=== PATIENT | female | born 1990 ===

== ENCOUNTER 2022-06-10 10:04 | Outpatient (CLI) | payer MEDICAID ==
[2022-06-10 14:23] LABS: BASOPHILS % (AUTO) 0.4 %; EOSINOPHILS # (AUTO) 0.2 10^3/uL (0.0-0.7); EOSINOPHILS % (AUTO) 3.3 %; HCT - HEMATOCRIT 36.7 % (37.0-47.0); HGB - HEMOGLOBIN 12.1 g/dL (12.0-16.0); LYMPHOCYTES # (AUTO) 1.9 10^3/uL (1.5-3.5); LYMPHOCYTES % (AUTO) 27.5 %; MEAN CORPUSCULAR HEMOGLOBIN 28.6 pg (27.0-31.0); MEAN CORPUSCULAR VOLUME 86.8 fL (81.0-99.0); MEAN PLATELET VOLUME 10.2 fL (7.9-10.8); MONOCYTES # (AUTO) 0.4 10^3/uL (0.0-1.0); MONOCYTES % (AUTO) 6.1 %; NEUTROPHILS # (AUTO) 4.3 10^3/uL (1.5-6.6); NEUTROPHILS % (AUTO) 62.6 %; PLT - PLATELET COUNT 206 10^3/uL (130-450); RED BLOOD COUNT 4.23 10^6/uL (4.20-5.40); WHITE BLOOD COUNT 6.9 x10^3/uL (4.8-10.8)
[2022-06-10 14:35] LABS: BILIRUBIN,URINE NEGATIVE (NEGATIVE); GLUCOSE, URINE (UA) NEGATIVE (NEGATIVE); KETONES,URINE (UA) NEGATIVE (NEGATIVE); LEUKOCYTE ESTERASE, URINE NEGATIVE (NEGATIVE); NITRITE,URINE NEGATIVE (NEGATIVE); OCCULT BLOOD,URINE NEGATIVE (NEGATIVE); PROTEIN,URINE NEGATIVE (NEGATIVE); UROBILINOGEN,URINE 0.2 (NORMAL) E.U./dL (NORMAL)
[2022-06-10 14:56] LABS: BACTERIA,URINE Rare /HPF (None Seen); CLARITY,URINE CLEAR (CLEAR); RBC,URINE None Seen /HPF (0-5); SQUAMOUS EPITHELIAL CELL,UR FEW Squamous (<= Few); WBC,URINE 0-3 /HPF (0-5)
[2022-06-11 05:10] LABS: HIV SCREEN 4TH GENERATION Non Reactive (Non Reactive); RPR Non Reactive (Non Reactive)
[2022-06-11 07:09] LABS: HBsAG SCREEN Negative (Negative)
[2022-06-11 08:09] LABS: HCV AB Non Reactive (Non Reactive); VARICELLA-ZOSTER AB IGG 968 index (Immune >165)
== END 2022-06-10 10:05 | disposition home or self-care (01) ==
LOC: LAB.S 10:04
PROVIDERS: ATTEND Obstetrics & Gynecology
DX: Z32.01 Encounter for pregnancy test, result positive (principal); Z36.89 Encounter for other specified antenatal screening
CPT/HCPCS: 36415; 81001; 85025; 86592; 86762; 86787; 86803; 86850; 86900; 86901; 87086; 87340; 87389

== ENCOUNTER 2022-06-13 21:03 | Outpatient (CLI) | payer MEDICAID ==
--- NOTE | 2022-06-14 08:20 | Ultrasound Report ---
PROCEDURE: OB First Trimester w/TV INDICATIONS: + PREG TEST OUTSIDE/PRIOR DATING DATA: Last menstrual period (LMP): 04/16/2022. LMP-based estimated date of delivery (PINA): 01/21/2023. First dating scan (date and location): Today's exam. Estimated date of delivery (PINA) from first dating scan: 01/22/2023. The below data below was generated using the ultrasound PINA of 01/22/2023 TECHNIQUE: Real-time scanning was performed of the fetus and maternal pelvic organs, with image documentation. Endovaginal scanning was also performed to better visualize the fetus and maternal ovaries. COMPARISON: None. FINDINGS: Embryo: Single living intrauterine . [place]-rump length measures 1.7 cm, corresponding to 8 weeks 1 day. Heart rate: 171 bpm. Measurement variability in dating: +/- 4 weeks by LMP, +/- 7 days by mean sac diameter (use before 6 weeks gestation if crown-rump length not able to be measured), +/- 5 days by crown-rump length (6-12 weeks gestation). Maternal organs: Ovaries are unremarkable. IMPRESSION: Single living intrauterine at 8 weeks 1 day, IPNA of 01/22/2023. Borderline tachycardia. Attention on follow-up. Reviewed by: Rj Dela Cruz on 06/14/2022 8:19 AM PDT Approved by: Rj Dela Cruz on 06/14/2022 8:19 AM PDT Station ID: [id number]
== END 2022-06-13 21:04 | disposition home or self-care (01) ==
LOC: DI 21:03
PROVIDERS: ATTEND Obstetrics & Gynecology
DX: O36.8310 Maternal care for abnormalities of the fetal heart rate or rhythm, first trimester, not applicable or unspecified (principal); Z3A.08 8 weeks gestation of pregnancy

== ENCOUNTER 2022-06-27 09:28 | Outpatient (CLI) | payer MEDICAID | END 2022-06-27 09:29 | disposition home or self-care (01) | LOC: LAB.S 09:28 | PROVIDERS: ATTEND Obstetrics & Gynecology | DX: O09.91 Supervision of high risk pregnancy, unspecified, first trimester (principal) ==

== ENCOUNTER 2022-06-29 11:00 | Outpatient (CLI) | payer MEDICAID | END 2022-06-29 11:01 | disposition home or self-care (01) | LOC: LAB 11:00 | PROVIDERS: ATTEND Obstetrics & Gynecology | DX: O09.91 Supervision of high risk pregnancy, unspecified, first trimester (principal) ==

== ENCOUNTER 2022-07-13 08:00 | Outpatient (CLI) | payer MEDICAID ==
[2022-07-14 17:48] LABS: NEISSERIA GONORRHOEAE DNA NEGATIVE (NEGATIVE); TRICHOMONAS VAGINALIS DNA NEGATIVE (NEGATIVE)
[2022-07-14 17:50] LABS: CHLAMYDIA TRACHOMATIS DNA NEGATIVE (NEGATIVE)
== END 2022-07-13 23:59 | disposition home or self-care (01) ==
LOC: LAB.WC 08:00
PROVIDERS: ATTEND Obstetrics & Gynecology
DX: Z11.3 Encounter for screening for infections with a predominantly sexual mode of transmission (principal)
CPT/HCPCS: 87491; 87591; 87661

== ENCOUNTER 2022-12-19 13:17 | Outpatient (CLI) | payer MEDICAID ==
--- NOTE | 2022-12-19 18:17 | Ultrasound Report ---
PROCEDURE: OB F/U or Repeat INDICATIONS: POOR GROWTH OUTSIDE/PRIOR DATING DATA: Last menstrual period (LMP): 04/16/2022. LMP-based estimated date of delivery (PINA): 01/21/2023. First dating scan (date and location): 06/13/2022. Estimated date of delivery (PINA) from first dating scan: 01/22/2023. The below data below was generated using the working PINA of 01/21/2023 TECHNIQUE: Real-time scanning was performed of the fetus, with image documentation and biometric measurements. Endovaginal scanning: Not performed. COMPARISON: None. FINDINGS: General: A single living intrauterine gestation is present. Presentation: Cephalic Placenta: Placental position is anterior, without previa. Amniotic fluid index: 9.9 cm, 14 percentile for gestational age. heart rate: 121 beats per minute. Maternal cervical canal: 4.1 cm long; normal length is 2.5 cm or more. biometrics: Biparietal diameter: 9.0 cm, 36 week 2 day Head circumference: 32.2 cm, 36 week 3 day Abdominal circumference: 31.0 cm, 35 week 0 day Femur length: 6.9 cm, 35 week 2 day Estimated gestational age from initial scan: 35 week 2 day Composite gestational age from present scan: 35 week 5 day Estimated weight and percentile: 2653 g, 49th percentile Measurement variability in biometric dating: +/- 10 days from 12-20 weeks gestation, +/- 2 weeks from 20-30 weeks gestation, +/- 3 weeks at 30 weeks gestation or more. Other: Not applicable. IMPRESSION: Single live intrauterine consistent with a 35 week 5 day gestation by current ultrasound Reviewed by: Max Peguero MD on 12/19/2022 5:16 PM GENARO Approved by: Max Peguero MD on 12/19/2022 5:16 PM AKHANS Station ID: [id number]
== END 2022-12-19 13:18 | disposition home or self-care (01) ==
LOC: DI 13:17
PROVIDERS: ATTEND Obstetrics & Gynecology
DX: O36.5939 Maternal care for other known or suspected poor fetal growth, third trimester, other fetus (principal); Z3A.35 35 weeks gestation of pregnancy

== ENCOUNTER 2023-01-02 08:00 | Outpatient (CLI) | payer MEDICAID | END 2023-01-02 23:59 | disposition home or self-care (01) | LOC: LAB.WC 08:00 | PROVIDERS: ATTEND Obstetrics & Gynecology | DX: Z36.85 Encounter for antenatal screening for Streptococcus B (principal) | CPT/HCPCS: 87797 ==

== ENCOUNTER 2023-01-27 07:34 | Inpatient (IN) | payer MEDICAID ==
[2023-01-27] MEDS ORDERED: miSOPROStoL 200 MCG TABLET BC PRN (08:26)
[2023-01-27] MEDS ORDERED: lidocaine 1% 20 ML MDV ID PRN (08:26)
[2023-01-27] MEDS ORDERED: SODIUM CHLORIDE FLUSH 0.9% 10 ML SYRINGE IVP PRN (08:26)
[2023-01-27] MEDS ORDERED: OXYTOCIN 10 UNIT/ML VIAL IM PRN (08:26)
[2023-01-27] MEDS ORDERED: OXYTOCIN/SODIUM CHLORIDE 500 ML IV PRN (08:26)
[2023-01-27] MEDS ORDERED: TRANEXAMIC ACID IN NACL 1,000 MG/100 ML BAG IV PRN (08:26)
[2023-01-27] MEDS ORDERED: CARBOPROST TROMETHAMINE 250 MCG/ML AMP IM PRN (08:26)
[2023-01-27] MEDS ORDERED: METHYLERGONOVINE 0.2 MG/ML VIAL IM PRN (08:26)
[2023-01-27 08:42] LABS: BASOPHILS % (AUTO) 0.4 %; EOSINOPHILS # (AUTO) 0.1 10^3/uL (0.0-0.7); EOSINOPHILS % (AUTO) 1.7 %; HCT - HEMATOCRIT 36.9 % (37.0-47.0); HGB - HEMOGLOBIN 12.2 g/dL (12.0-16.0); LYMPHOCYTES # (AUTO) 1.8 10^3/uL (1.5-3.5); LYMPHOCYTES % (AUTO) 22.2 %; MEAN CORPUSCULAR HEMOGLOBIN 29.3 pg (27.0-31.0); MEAN CORPUSCULAR HGB CONC 33.1 g/dL (32.0-36.0); MEAN CORPUSCULAR VOLUME 88.7 fL (81.0-99.0); MEAN PLATELET VOLUME 10.7 fL (7.9-10.8); MONOCYTES # (AUTO) 0.7 10^3/uL (0.0-1.0); MONOCYTES % (AUTO) 8.7 %; NEUTROPHILS # (AUTO) 5.4 10^3/uL (1.5-6.6); NEUTROPHILS % (AUTO) 65.1 %; PLT - PLATELET COUNT 164 10^3/uL (130-450); RED BLOOD COUNT 4.16 10^6/uL (4.20-5.40); RED CELL DISTRIBUTION WIDTH 13.3 % (12.0-15.0); WHITE BLOOD COUNT 8.3 x10^3/uL (4.8-10.8)
[2023-01-27 08:45] LABS: RUPTURE OF MEMBRANES PLUS POSITIVE (NEGATIVE)
[2023-01-27] MEDS ORDERED: SODIUM CHLORIDE FLUSH 0.9% 10 ML SYRINGE IVP SCH (09:00)
[2023-01-27] MEDS: miSOPROStoL 100 MCG TABLET VG SCH ×3 (10:25→21:15)
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
[2023-01-27] MEDS: LACTATED RINGERS 1,000 ML IV SCH ×2 (13:50→18:09)
[2023-01-27] MEDS ORDERED: ACETAMINOPHEN 500 MG TABLET PO PRN (16:37)
--- NOTE | 2023-01-27 17:21 | PROVIDER PROGRESS NOTE ---
Labor Progress Note - Uterine Monitoring Uterine Monitoring Mode: positive: External toco Contraction Frequency (min/apart): 3 to 5 Contraction Intensity: positive: Moderate to strong Uterine Resting Tone: positive: Soft - Monitoring Monitor Mode: positive: External ultrasound Heart Rate Baseline: 130 Heart Rate Variability: positive: Moderate (6-25 bmp) Accelerations: positive: Present, 15x15 Decelerations: positive: None Strip Review: positive: Category I - Vaginal Exam Dilation (in cm): 1 Effacement (%): 70 Station: -3 - Labor Progress Note Labor Progress Note/Additional Text: Patient feeling significant pain with contraction. Currently using nitrous. Received a dose of Tylenol. Offered fentanyl, but discussed that this early on being this bad will likely need more intense pain later and should be open- minded about epidural. Did have occasional late deceleration previously although baby is very active. Hard to get a baseline at times.
[2023-01-27] MEDS: fentaNYL 100 MCG/2 ML VIAL IVP PRN (21:14)
[2023-01-28] MEDS: miSOPROStoL 100 MCG TABLET VG SCH (01:13)
[2023-01-28] MEDS: fentaNYL 100 MCG/2 ML VIAL IVP PRN ×2 (01:15→05:15)
--- NOTE | 2023-01-28 04:16 | PROVIDER PROGRESS NOTE ---
Labor Progress Note - Uterine Monitoring Uterine Monitoring Mode: positive: External toco Contraction Frequency (min/apart): 3-7 Contraction Intensity: positive: Moderate Uterine Resting Tone: positive: Soft - Monitoring Monitor Mode: positive: External ultrasound Heart Rate Baseline: 135 Heart Rate Variability: positive: Moderate (6-25 bmp) Accelerations: positive: Present, 15x15 Decelerations: positive: Late, Intermittent (<50% x20 min) - Vaginal Exam Dilation (in cm): 1.5 Effacement (%): 70 Station: -3 - Labor Progress Note Labor Progress Note/Additional Text: Received last dose of misoprostol at 0113. Subsequently had occasional late deceleration followed by a prolonged deceleration that returned to baseline. Intermittent category 2 tracing, although overall reassuring with long periods of category 1. Will reevaluate prior to next dose.
[2023-01-28] MEDS: LACTATED RINGERS 1,000 ML IV SCH ×2 (05:30→09:46)
--- NOTE | 2023-01-28 06:47 | PROVIDER PROGRESS NOTE ---
Labor Progress Note - Uterine Monitoring Uterine Monitoring Mode: positive: External toco Contraction Frequency (min/apart): 8-10 Contraction Intensity: positive: Moderate Uterine Resting Tone: positive: Soft - Monitoring Monitor Mode: positive: External ultrasound Heart Rate Baseline: 130 Heart Rate Variability: positive: Moderate (6-25 bmp) Accelerations: positive: Present, 15x15 Decelerations: positive: Late, Intermittent (<50% x20 min) Strip Review: positive: Category II - Vaginal Exam Dilation (in cm): 5 Effacement (%): 90 Station: -2 Cervical Position: Anterior - Labor Progress Note Labor Progress Note/Additional Text: Overally reassuring FHT, but occasional late deceleration, but variability remains good. Made progress to 5cm and nearly completely effaced. Patient has received 3 doses of fentanyl and desires an epidural. Will perform AROM after epidural.
[2023-01-28] MEDS ORDERED: OXYTOCIN/SODIUM CHLORIDE 500 ML IV SCH (08:00)
[2023-01-28] MEDS ORDERED: ROPIVACAINE 0.2% 200 MG/100 ML BAG EP ONE (08:33)
--- NOTE | 2023-01-28 08:51 | ANESTHESIA ---
Pre-Anesthesia VS, & Labs - Diagnosis active labor - Procedure vaginal delivery Vital Signs: Temp Pulse Resp BP Pulse Ox O2 Flow Rate 36.8 C 01/27/23 08:39 Height: 5 ft 7 in Weight (kg): 90.718 kg Body Mass Index: 31.3 BMI Classification: Obese - NPO Last Fluid Intake: clear liquids - Is Patient ?: Yes - Lab Results Current Lab Results: Laboratory Tests 01/27/23 08:10: WBC 8.3, RBC 4.16 L, Hgb 12.2, Hct 36.9 L, MCV 88.7, MCH 29.3, MCHC 33.1, RDW 13.3, Plt Count 164, MPV 10.7, Neut # (Auto) 5.4, Lymph # (Auto) 1.8, [place] # (Auto) 0.7, Eos # (Auto) 0.1, Baso # (Auto) 0.0, Absolute Nucleated RBC 0.00, Nucleated RBC % 0.0 01/27/23 08:10: Blood Type A POSITIVE, Antibody Screen NEGATIVE Lab results reviewed: Yes Fish Bones: 01/27/23 08:10 Home Medications and Allergies Active Medications Acetaminophen (Acetaminophen 500 Mg Tablet) 1,000 mg PO Q4HR PRN PRN Reason: Pain or Fever > 38C (100.4F) Last Admin: 01/27/23 16:46 Dose: 1,000 mg Carboprost Tromethamine (Carboprost Tromethamine 250 Mcg/Ml Amp) 250 mcg IM Q15M PRN PRN Reason: Step 4: Hemorrhage protocol Stop: 02/01/23 08:27 Fentanyl (Fentanyl 100 Mcg/2 Ml Vial) 100 mcg IVP Q2HR PRN PRN Reason: Severe Pain (Level 7-10) Last Admin: 01/28/23 05:15 Dose: 100 mcg Oxytocin/Sodium Chloride (Pitocin/Sodium Chloride) 500 mls @ 999 mls/hr IV PRN PRN; Protocol PRN Reason: POST- HEMORR PREVENTION Stop: 02/01/23 08:27 Tranexamic Acid (Tranexamic 1,000 Mg/100ml-Nacl) 1,000 mg in 100 mls @ 600 mls/hr IV .ONCE PRN PRN Reason: EBL >1200mL and within 3hr Stop: 02/01/23 08:27 Lactated Ringer's (Lr) 1,000 mls @ 100 mls/hr IV .Q10H [facility] Last Admin: 01/28/23 05:30 Dose: 100 mls/hr Oxytocin/Sodium Chloride (Pitocin/Sodium Chloride) 500 mls @ 1 mls/hr IV TITR [facility]; Protocol Last Admin: 01/28/23 07:54 Dose: 2 milliunit/min, 2 mls/hr Lidocaine HCl (Lidocaine 1% 20 Ml Mdv) 20 ml ID .ONCE PRN PRN Reason: PERINEAL REPAIR Stop: 02/01/23 08:27 Methylergonovine Maleate (Methylergonovine 0.2 Mg/Ml Vial) 0.2 mg IM .ONCE PRN PRN Reason: Step 2: Hemorrhage protocol Stop: 02/01/23 08:27 Misoprostol (Misoprostol 200 Mcg Tablet) 800 mcg BC .ONCE PRN PRN Reason: Step 3: Hemorrhage protocol Stop: 02/01/23 08:27 Misoprostol (Misoprostol 100 Mcg Tablet) 25 mcg VG Q4H [facility] Last Admin: 01/28/23 01:13 Dose: 25 mcg Oxytocin (Oxytocin 10 Unit/Ml Vial) 10 unit IM .ONCE PRN PRN Reason: Step one: If no IV access Stop: 02/01/23 08:27 Sodium Chloride (Sodium Chloride Flush 0.9% 10 Ml Syringe) 10 ml IVP 0100,0900,1700 [facility] Last Admin: 01/27/23 08:00 Dose: 10 ml Sodium Chloride (Sodium Chloride Flush 0.9% 10 Ml Syringe) 10 ml IVP PRN PRN PRN Reason: NEEDED PER PROVIDER ORDERS Allergies/Adverse Reactions: Allergies Allergy/AdvReac Type Severity Reaction Status Date / Time No Known Drug Allergies Allergy Verified 01/27/23 07:48 Anes History & Medical History - Anesthetic History Anesthesia Complications: reports: No previous complications - Medical History Cardiovascular: reports: Other (possible POTS, ECHO negative) Pulmonary: reports: None Gastrointestinal: reports: None Urinary: reports: None Neuro: reports: None Musculoskeletal: reports: Other (omkar danlos, 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) Endocrine/Autoimmune: reports: None Blood Disorders: reports: None Skin: reports: None Smoking Status: Former smoker Psychosocial: reports: No issues indicated History of Cancer?: No - Surgical History Gynecologic: reports: Breast implants - Obstetrical History : 5 Parity: 0 Events: reports: None Complications: reports: None Exam General: Alert, Oriented x3, Cooperative, No acute distress Dental: WNL Mouth Openin Fingerbreadth Neck Mobility: Normal Mallampati classification: II Thyromental Distance: 4-6 cm Mental/Cognitive Status: Alert/Oriented X3, Normal for patient Plan Anesthesia Type: Epidural Consent for Procedure(s) Verified and Reviewed: Yes Code Status: Attempt Resuscitation ASA classification: 2-Mild systemic disease Is this case an emergency?: No
[2023-01-28] MEDS ORDERED: ePHEDrine 50 MG/ML VIAL IVP PRN (08:53)
[2023-01-28] MEDS ORDERED: NALOXONE 0.4 MG/ML VIAL IVP PRN ×2 (08:53→12:55)
[2023-01-28] MEDS ORDERED: ROPIVACAINE 0.2% 200 MG/100 ML BAG EP PRN (08:53)
--- NOTE | 2023-01-28 09:47 | PROVIDER PROGRESS NOTE ---
Labor Progress Note - Uterine Monitoring Uterine Monitoring Mode: positive: External toco Contraction Frequency (min/apart): 3-7 Contraction Intensity: positive: Strong Uterine Resting Tone: positive: Soft - Monitoring Monitor Mode: positive: External ultrasound Heart Rate Baseline: 150 Heart Rate Variability: positive: Moderate (6-25 bmp) Accelerations: positive: Present, 15x15 Decelerations: positive: Late, Intermittent (<50% x20 min) - Vaginal Exam Dilation (in cm): 6 Effacement (%): 90 Station: -2 Cervical Position: Anterior - Labor Progress Note Labor Progress Note/Additional Text: Patient had a run of recurrent late decelerations. Got an epidural for pain relief. Patient was checked and found to be 6 cm, but had still high in the pelvis. Plan to assess fetus after recovery and restart oxytocin when able. Discussed possibility of section if fetus does not tolerate.
--- NOTE | 2023-01-28 10:47 | PROVIDER PROGRESS NOTE ---
Labor Progress Note - Uterine Monitoring Uterine Monitoring Mode: positive: External toco Contraction Frequency (min/apart): 2-7 Contraction Intensity: positive: Moderate to strong - Monitoring Monitor Mode: positive: External ultrasound Heart Rate Baseline: 150 Heart Rate Variability: positive: Moderate (6-25 bmp) Accelerations: positive: Present, 15x15 Decelerations: positive: Late, Recurrent (>50% x20 min) - Vaginal Exam Dilation (in cm): 6 Effacement (%): 90 Station: -2, Ballotable - Labor Progress Note Labor Progress Note/Additional Text: Patient has progressed to recurrent late decelerations although with good variability and accelerations. While this does not indicate significant concern for compromise, we are unable to start oxytocin, patient is unchanged, and head is not in a position for membrane rupture. Patient was previously counseled and consents in the event of urgent section, and again this was discussed after heart tracing worsened. section was recommended. Risks, benefits and alternatives were discussed including but not limited to infection, bleeding that may require blood products or hysterectomy for life saving measures, injury to surrounding organs including but not limited to bowel, bladder, ureters, tubes and ovaries and/or the baby. Should injury occur it could require longer/additional surgery to repair. The patient stated understanding and desired to proceed. All questions were answered posed by patient.
[2023-01-28] MEDS ORDERED: LIDOCAINE 2%-EPI 1:100000 20 ML MDV ONE (11:00)
[2023-01-28] MEDS ORDERED: ceFAZolin (2G) 2 GM in SODIUM CHLORIDE 0.9% MINIBAG 100 ML IV SCH (11:00)
[2023-01-28] MEDS ORDERED: AZITHROMYCIN INJ 500 MG in SODIUM CHLORIDE 0.9% 250 ML IV ONE (11:00)
[2023-01-28] MEDS ORDERED: LACTATED RINGERS 1,000 ML IV SCH ×3 (11:00→13:00)
[2023-01-28] MEDS ORDERED: MIDAZOLAM 2 MG/2 ML VIAL ONE (11:41)
[2023-01-28] MEDS ORDERED: PROPOFOL 200 MG/20 ML VIAL IVP ONE ×2 (11:52→12:51)
[2023-01-28] MEDS ORDERED: ONDANSETRON ODT 4 MG TABLET TL PRN (11:55)
[2023-01-28] MEDS ORDERED: OXYTOCIN/SODIUM CHLORIDE 500 ML IV PRN (11:55)
[2023-01-28] MEDS ORDERED: SODIUM CHLORIDE FLUSH 0.9% 10 ML SYRINGE IVP PRN (11:55)
[2023-01-28] MEDS ORDERED: SIMETHICONE CHEW 80 MG TABLET PO PRN (11:55)
[2023-01-28] MEDS ORDERED: KETOROLAC 30 MG/ML VIAL ONE (11:59)
--- NOTE | 2023-01-28 12:01 | OPERATIVE REPORT ---
Operative Report - General Admit Date: 01/27/23 Procedure Date: 01/28/23 Planned Procedure: Primary low-transverse section Pre-Op Diagnosis: intolerance of labor Procedure Performed: Primary low-transverse section Post Op Diagnosis: intolerance to labor, status post primary low- transverse - Procedure Note Primary Surgeon: Maikol Wellington MD Secondary Surgeon: NOY Bond Anesthesia Provider: Trisha Boland CRNA Anesthesia Technique: Epidural Pathology: None Estimated Blood Loss (mL): 600 Indications: intolerance of labor with repetitive late decelerations remote from delivery Findings: Healthy live vargas female with Apgars of 8/9. weight is pending at this time. Normal-appearing tubes and ovaries. 2 small, approximately 1.5 cm fibroids, 1 anterior and 1 posterior. Complications: None - Other Other Information/Narrative: Patient was admitted at 40 weeks 6 days gestation for induction of labor at term. She received 4 doses of misoprostol then was briefly started on oxytocin. Despite the repetitive late decelerations, likely due to the infrequency of contractions, tolerated this well and had good variability and accelerations between contractions. She progressed to 6 cm dilation, but had repetitive late decelerations and could not restart the oxytocin. Despite position changes, fluid bolus, stopping oxytocin, decelerations did not stop, so after several discussions, agreed to proceed with section. section was recommended. Risks, benefits and alternatives were discussed including but not limited to infection, bleeding that may require blood products or hysterectomy for life saving measures, injury to surrounding organs including but not limited to bowel, bladder, ureters, tubes and ovaries and/or the baby. Should injury occur it could require longer/additional surgery to repair. The patient stated understanding and desired to proceed. All questions were answered posed by patient. Prior to being taken to the OR, 2 g of cefazolin and 500 mg of azithromycin were administered. The patient was taken to the operating room where regional anesthesia was found to be adequate. She was then prepared and draped in the usual sterile fashion in the dorsal supine position with a leftward tilt displacing the uterus. Ng was draining to gravity. SCDs were on bilateral lower extremities. A pfannenstiel skin incision was then made with the scalpel and carried through to the underlying layer of fascia. The fascia was incised in the midline and the incision extended laterally with the Cody scissors. The superior aspect of the facial incision was then grasped with the Izzy clamps, elevated and the underlying rectus muscles dissected off sharply. Attention was then turned to the inferior aspect of this incision which in a similar fashion was grasped, elevated with the Izzy clamps and the rectus muscle dissected off sharply. The rectus muscles were in the midline. The peritoneum identified, grasped with the pick-ups and entered sharply with the Metzenbaum scissors. The peritoneal incision was then extended superiorly and inferiorly with good visualization of the bladder. The bladder blade was inserted. The vesicouterine peritoneum was identified, grasped with the pick-ups, and entered sharply with Metzenbaum scissors. This incision was then extended laterally and the bladder flap created digitally. The bladder blade was reinserted. The lower uterine segment was identified and incised in a transverse fashion with the scalpel. The uterine incision was then extended bluntly laterally. Artificial rupture of membranes demonstrated meconium stained fluid. The bladder blade was removed. The fetus was in a cephalic presentation. The infants head delivered atraumatically. The anterior shoulders were delivered followed by the posterior shoulders then the remainder of the body. The infants mouth and nose were bulb suctioned. The umbilical cord was clamped times two and cut. The was handed to the pediatric team. The placenta was removed with gentle traction. Oxytocin was added to the IV fluid and was allowed to run freely. The uterus was exteriorized and cleared of all clots and debris. The uterine incision was inspected and found to be without any extensions and was repaired with 0 Vicryl in a running, locked fashion. A second imbricating layer was performed. Upon inspection, the repaired hysterotomy was found to be hemostatic. The uterus was firm and returned to the abdomen. The gutters were cleared of all clots and debris. The muscle layer was examined and found to be hemostatic. The fascia was reapproximated with 0 Vicryl in a running fashion. The skin was closed in a subcuticular fashion with 4-0 Monocryl. The patient tolerated the procedure well. Sponge, lap and needle counts were correct times three. The patient was taken to the recovery room in stable condition. I appreciate the assistance of NOY Bond during this procedure, and the assistance in retraction, visualization, dissection, and overall assistance during the case were instrumental to the patient's wellbeing. APGARs: 8/9 weight: Pending
[2023-01-28] MEDS ORDERED: SODIUM CHLORIDE 0.9% 10 ML VIAL IVP ONE (12:03)
[2023-01-28] MEDS ORDERED: ROPIVACAINE 0.2% PF 10 ML VIAL ONE (12:03)
[2023-01-28] MEDS ORDERED: MORPHINE PF 5 MG/10 ML VIAL ONE (12:11)
[2023-01-28] MEDS ORDERED: LACTATED RINGERS 300 ML IV ONE (12:29)
[2023-01-28] MEDS ORDERED: MORPHINE 2 MG/ML CARPUJECT IVP PRN (12:55)
[2023-01-28] MEDS ORDERED: ONDANSETRON 4 MG/2 ML VIAL IVP PRN (12:55)
[2023-01-28] MEDS ORDERED: ATROPINE ABBOJECT 1 MG/10 ML SYRINGE IVP PRN (12:55)
[2023-01-28] MEDS ORDERED: fentaNYL 100 MCG/2 ML VIAL IVP PRN (12:55)
[2023-01-28] MEDS ORDERED: HYDROmorphone 0.5 MG/0.5 ML SYRINGE IVP PRN (12:55)
[2023-01-28] MEDS: diphenhydrAMINE 25 MG CAPSULE PO PRN ×2 (15:27→23:37)
[2023-01-28] MEDS: ACETAMINOPHEN 500 MG TABLET PO SCH ×2 (15:27→23:36)
[2023-01-28] MEDS ORDERED: SODIUM CHLORIDE FLUSH 0.9% 10 ML SYRINGE IVP SCH (17:00)
--- NOTE | 2023-01-28 17:36 | ANESTHESIA POST OP EVALUATION ---
Anesthesia Post Eval - Post Anesthesia Eval Vitals: Last Vital Signs Temp 36.8 C 01/28/23 13:00 Pulse 81 01/28/23 13:00 Resp 14 01/28/23 13:00 BP 115/67 01/28/23 13:00 Pulse Ox 100 01/28/23 13:00 O2 Flow Rate CV Function Including HR & BP: Stable Pain Control: Satisfactory Nausea & Vomiting: Negative Mental Status: Baseline Respiratory Status: Airway Patent Hydration Status: Satisfactory Anesthesia Complications: None
[2023-01-28] MEDS: KETOROLAC 30 MG/ML VIAL IVP SCH ×2 (18:02→23:41)
[2023-01-29 05:26] LABS: BASOPHILS % (AUTO) 0.3 %; EOSINOPHILS # (AUTO) 0.2 10^3/uL (0.0-0.7); EOSINOPHILS % (AUTO) 1.7 %; HCT - HEMATOCRIT 29.6 % (37.0-47.0); HGB - HEMOGLOBIN 9.7 g/dL (12.0-16.0); LYMPHOCYTES # (AUTO) 1.6 10^3/uL (1.5-3.5); MEAN CORPUSCULAR HEMOGLOBIN 29.2 pg (27.0-31.0); MEAN CORPUSCULAR HGB CONC 32.8 g/dL (32.0-36.0); MEAN CORPUSCULAR VOLUME 89.2 fL (81.0-99.0); MEAN PLATELET VOLUME 10.4 fL (7.9-10.8); MONOCYTES # (AUTO) 0.8 10^3/uL (0.0-1.0); MONOCYTES % (AUTO) 9.7 %; NEUTROPHILS # (AUTO) 5.9 10^3/uL (1.5-6.6); NEUTROPHILS % (AUTO) 68.6 %; PLT - PLATELET COUNT 120 10^3/uL (130-450); RED BLOOD COUNT 3.32 10^6/uL (4.20-5.40); RED CELL DISTRIBUTION WIDTH 13.4 % (12.0-15.0); WHITE BLOOD COUNT 8.6 x10^3/uL (4.8-10.8)
[2023-01-29] MEDS: KETOROLAC 30 MG/ML VIAL IVP SCH (05:58)
[2023-01-29] MEDS: oxyCODONE 5 MG TABLET PO PRN ×4 (08:37→23:34)
[2023-01-29] MEDS: DOCUSATE SODIUM 100 MG CAPSULE PO SCH ×2 (08:38→21:57)
[2023-01-29] MEDS: ACETAMINOPHEN 500 MG TABLET PO SCH ×3 (08:42→19:35)
--- NOTE | 2023-01-29 09:15 | PROVIDER PROGRESS NOTE ---
Subjective - Subjective Subjective: Subjective Patient reports she is doing well. Lochia appropriate. Denies heavy bleeding. Ambulating. Pelvic and abdominal pain well-controlled. Tolerating oral intake. Diet: Regular. Voiding without difficulty. Passing flatus. Denies BM. Patient is bonding with baby in room Breast feeding going well. Denies feeling lightheaded, dizzy or excessively fatigued. Objective General: Alert, oriented, no apparent distress. Cardiovascular: Regular rate. Regular rhythm. Lungs: No increased work of breathing. Abdomen: Uterus firm. Below umbilicus. No guarding or rebound. Extremities: No pain on palpation. No cords palpated. Distal pulses intact. Incision: Clean, dry, and intact. Assessment and Plan day 1. -Routine care -Anticipate discharge in 1 to 2 days Objective - Vital Signs/Intake & Output Vital Signs: Vital Signs x48h Temp Pulse Resp BP 01/29/23 03:37 98.1 F 86 16 119/62 Intake & Output: Intake & Output 01/26/23 01/27/23 01/28/23 01/29/23 23:59 23:59 23:59 23:59 Intake Total 1349.65 426.667 640 Output Total 875 675 Balance 1349.65 -448.333 -35 - Lab Results Fish Bones: 01/29/23 05:02 Other Labs: Lab Results x24hrs 01/29/23 Range/Units 05:02 WBC 8.6 (4.8-10.8) x10^3/uL RBC 3.32 L (4.20-5.40) 10^6/uL Hgb 9.7 L (12.0-16.0) g/dL Hct 29.6 L (37.0-47.0) % MCV 89.2 (81.0-99.0) fL MCH 29.2 (27.0-31.0) pg MCHC 32.8 (32.0-36.0) g/dL RDW 13.4 (12.0-15.0) % Plt Count 120 L (130-450) 10^3/uL MPV 10.4 (7.9-10.8) fL Neut # (Auto) 5.9 (1.5-6.6) 10^3/uL Lymph # (Auto) 1.6 (1.5-3.5) 10^3/uL [place] # (Auto) 0.8 (0.0-1.0) 10^3/uL Eos # (Auto) 0.2 (0.0-0.7) 10^3/uL Baso # (Auto) 0.0 (0.0-0.1) 10^3/uL Absolute Nucleated RBC 0.00 x10^3/uL Nucleated RBC % 0.0 /100WBC
[2023-01-29] MEDS: IBUPROFEN 600 MG TABLET PO SCH ×2 (15:10→21:59)
[2023-01-30] MEDS: oxyCODONE 5 MG TABLET PO PRN ×5 (03:33→22:53)
[2023-01-30] MEDS: ACETAMINOPHEN 500 MG TABLET PO SCH ×3 (03:34→22:52)
[2023-01-30] MEDS: IBUPROFEN 600 MG TABLET PO SCH ×3 (03:44→20:53)
[2023-01-30] MEDS: DOCUSATE SODIUM 100 MG CAPSULE PO SCH ×2 (07:19→20:53)
--- NOTE | 2023-01-30 13:19 | PROVIDER PROGRESS NOTE ---
Subjective - Prog Note Date Prog Note Date: 01/30/23 Prog Note Time: 13:17 - Subjective Pt reports feeling: Improved Subjective: Pt well, lochia appropriate, + amb, + void, + gus PO, + flatus Feeding going well -- breast though baby has dropped 9% weight and so we are actively assisting with support Bonding with baby Denies: F/C/N/V/CP/SOB Denies: dizziness, weakness, lightheadedness, difficulty with ambulation, palpitations Denies: LOVE / visual changes Objective - Vital Signs/Intake & Output Reviewed Vital Signs: Yes Vital Signs: Vital Signs x48h Temp Pulse Resp BP Pulse Ox 01/30/23 07:22 97.9 F 77 16 132/88 H 100 Intake & Output: Intake & Output 01/27/23 01/28/23 01/29/23 01/30/23 23:59 23:59 23:59 23:59 Intake Total 1349.65 013.854 5914 Output Total 875 1126 Balance 1349.65 -448.333 104 - Objective General Appearance: positive: No acute distress Eyes Bilateral: positive: Normal inspection ENT: positive: ENT inspection nml Neck: positive: Nml inspection Respiratory: positive: Chest non-tender, No respiratory distress, Breath sounds nml Cardiovascular: positive: Regular rate & rhythm, No murmur, No gallop Abdomen: positive: Non-tender, Nml bowel sounds, No distention, Other (UTERUS BELOW U inc cdi, STERISTRIPS & SUTURES) Back: positive: Nml inspection Skin: positive: Color nml, No rash, Warm, Dry Extremities: positive: Non-tender, Nml appearance Neurologic/Psychiatric: positive: Oriented x3 - Lab Results Fish Bones: 01/29/23 05:02 Assessment/Plan - Problem List (1) state Impression: DOING WELL continue to advance anticipate D/C home tomorrow with routine precautions and ins tructions (2) Postoperative state Impression: continue to advance anticipate D/C home tomorrow once all milestones are met (3) Anemia Impression: start PO iron asymptomatic stable Qualifiers: Anemia type: other cause Other causes of anemia: acute posthemorrhagic Qualified Code(s): D62 - Acute posthemorrhagic anemia
[2023-01-30] MEDS: FERROUS SULFATE 325 MG TABLET PO SCH (16:50)
[2023-01-30] MEDS ORDERED: diphenhydrAMINE 25 MG CAPSULE PO PRN (21:00)
[2023-01-31] MEDS: IBUPROFEN 600 MG TABLET PO SCH ×2 (04:48→11:24)
[2023-01-31] MEDS: oxyCODONE 5 MG TABLET PO PRN ×3 (04:48→13:51)
[2023-01-31] MEDS: DOCUSATE SODIUM 100 MG CAPSULE PO SCH (08:21)
[2023-01-31] MEDS: ACETAMINOPHEN 500 MG TABLET PO SCH ×2 (08:21→15:57)
[2023-01-31 09:53] VITALS: BP 125/71; O2SAT 98
[2023-01-31] MEDS: FERROUS SULFATE 325 MG TABLET PO SCH (11:24)
--- NOTE | 2023-01-31 12:42 | DISCHARGE SUMMARY ---
"Discharge Summary Admit Date: 01/27/23 Discharge Date: 01/31/23 Discharging Provider: kathia Primary Care Provider: henri Code Status: Attempt Resuscitation Condition at Discharge: Good Discharge Disposition: 01 Home, Self Care - DIAGNOSES Admission Diagnoses: IUP at term ROM Discharge Diagnoses with Status of Each Condition: s/p 1LTCS 2'2 NRFHT labor progressed to 6cm, then NRFHT doing well. - HPI History of Present Illness: Pt well, lochia appropriate, + amb, + void, + gus PO, + flatus Feeding going well -- breast Bonding with baby reports ready to go home and has safe home to go home to her support system is FOB, and we discussed strategies. - CONSULTS | PROCEDURES Procedures: evaluation labor management labor augmentation epidural 1LCTS post op & post care and support - HOSPITAL COURSE Hospital Course: Patient was admitted at 40 weeks 6 days gestation for induction of labor at term. She received 4 doses of misoprostol then was briefly started on oxytocin. Despite the repetitive late decelerations, likely due to the infrequency of contractions, tolerated this well and had good variability and accelerations between contractions. She progressed to 6 cm dilation, but had repetitive late decelerations and could not restart the oxytocin. Despite position changes, fluid bolus, stopping oxytocin, decelerations did not stop, so after several discussions, agreed to proceed with section. Prior to being taken to the OR, 2 g of cefazolin and 500 mg of azithromycin were administered. The patient was taken to the operating room where regional anesthesia was found to be adequate. She was then prepared and draped in the usual sterile fashion in the dorsal supine position with a leftward tilt displacing the uterus. Ng was draining to gravity. SCDs were on bilateral lower extremities. A pfannenstiel skin incision was then made with the scalpel and carried through to the underlying layer of fascia. The fascia was incised in the midline and the incision extended laterally with the Cody scissors. The superior aspect of the facial incision was then grasped with the Izzy clamps, elevated and the underlying rectus muscles dissected off sharply. Attention was then turned to the inferior aspect of this incision which in a similar fashion was grasped, elevated with the Izzy clamps and the rectus muscle dissected off sharply. The rectus muscles were in the midline. The peritoneum identified, grasped with the pick-ups and entered sharply with the Metzenbaum scissors. The peritoneal incision was then extended superiorly and inferiorly with good visualization of the bladder. The bladder blade was inserted. The vesicouterine peritoneum was identified, grasped with the pick-ups, and entered sharply with Metzenbaum scissors. This incision was then extended laterally and the bladder flap created digitally. The bladder blade was reinserted. The lower uterine segment was identified and incised in a transverse fashion with the scalpel. The uterine incision was then extended bluntly laterally. Artificial rupture of membranes demonstrated meconium stained fluid. The bladder blade was removed. The fetus was in a cephalic presentation. The infants head delivered atraumatically. The anterior shoulders were delivered followed by the posterior shoulders then the remainder of the body. The infants mouth and nose were bulb suctioned. The umbilical cord was clamped times two and cut. The infant was handed to the pediatric team. The placenta was removed with gentle traction. Oxytocin was added to the IV fluid and was allowed to run freely. The uterus was exteriorized and cleared of all clots and debris. The uterine incision was inspected and found to be without any extensions and was repaired with 0 Vicryl in a running, locked fashion. A second imbricating layer was performed. Upon inspection, the repaired hysterotomy was found to be hemostatic. The uterus was firm and returned to the abdomen. The gutters were cleared of all clots and debris. The muscle layer was examined and found to be hemostatic. The fascia was reapproximated with 0 Vicryl in a running fashion. The skin was closed in a subcuticular fashion with 4-0 Monocryl. The patient tolerated the procedure well. Sponge, lap and needle counts were correct times three. The patient was taken to the recovery room in stable condition. post operatively she did well all milestones were met and she was D/Cd home with infant on POD#3 - ALLERGIES Allergies/Adverse Reactions: Allergies Allergy/AdvReac Type Severity Reaction Status Date / Time No Known Drug Allergies Allergy Verified 01/28/23 12:12 - MEDICATIONS Home Medications: Ambulatory Orders Medication Instructions Recorded Confirmed Acetaminophen [Tylenol] 1,000 mg PO Q8H #40 tab 01/31/23 Ferrous Sulfate [Feosol] 325 mg PO BIDWM #60 tab 01/31/23 Ibuprofen [Motrin] 600 mg PO Q6H #60 tab 01/31/23 - PHYSICAL EXAM AT DISCHARGE General Appearance: positive: No acute distress Eyes Bilateral: positive: Normal inspection, PERRL ENT: positive: ENT inspection nml Neck: positive: Nml inspection Respiratory: positive: Chest non-tender, No respiratory distress, Breath sounds nml Cardiovascular: positive: Regular rate & rhythm, No murmur, No gallop Abdomen: positive: Non-tender, No distention, Other (sheldon 1 below U) Back: positive: Nml inspection Skin: positive: Color nml, No rash, Warm, Dry Extremities: positive: Pedal edema (1+) Neurologic/Psychiatric: positive: Oriented x3 - LABS Result Diagrams: 01/29/23 05:02 - QUALITY (Female Hip Fx Only) Was patient sent home on osteoporosis medication?: No - FOLLOW UP Follow Up: 1 week for post-op check and for all appointments. - TIME SPENT Time Spent in Discharge (Minutes): 30"
--- NOTE | 2023-01-31 13:00 | Discharge Plan ---
Discharge Plan Problem Reviewed?: Yes Disposition: Home, Self Care Condition: Good Prescriptions: Ferrous Sulfate [Feosol] 325 mg PO BIDWM #60 tab Ibuprofen [Motrin] 600 mg PO Q6H #60 tab Acetaminophen [Tylenol] 1,000 mg PO Q8H #40 tab Diet: Regular Activity Restrictions: No Restrictions Shower Restrictions: No Driving Restrictions: No Weight Bearing: Full Weight Instruction Topics: , Depression , Change Expect Parents Plan of Treatment: routine post op care care care Assessment: all milestones met doing well precautions reviewed No Smoking: If you smoke, Please STOP! Call for help.
--- NOTE | 2023-01-31 16:18 | Labor Flowsheet ---
Labor Flowsheet Datetime Report Generated by CPN: 01/31/2023 16:18 Datetime: 01/31/2023 09:44 VITAL SIGNS NBP Sys/Angie/Mean (mmHg): 125 : 71 : 84 Pulse: 91 SpO2 (%): 98 Datetime: 01/28/2023 16:00 PAIN Pain Scale: 0 Datetime: 01/28/2023 14:30 Stage of : Recovery Datetime: 01/28/2023 12:46 LaborFlag: Labor Datetime: 01/28/2023 11:06 Patient Care Comments: Taken to OR via bed Datetime: 01/28/2023 11:00 UTERINE ACTIVITY Monitor Mode: Palpation Frequency (min): 2-8 Duration (sec): 60-70 Pattern: Normal: <= 5 Contractions in 10 Minutes Resting Tone (Palpate): Relaxed Contraction Comments: Belly band had been removed for surgery, contractions not appearing on strip but were palpated by RN FHR Baseline Rate : 145 Variability: Moderate 6-25 bpm Accelerations: 15X15 Decelerations: Variable Category: Category II Datetime: 01/28/2023 10:53 Anesthesia Comments: MICE RAISER in room, procedure discussed with pt. Datetime: 01/28/2023 10:37 Communication Comments: call made for c/s, notifying team Datetime: 01/28/2023 10:31 Patient Position/Activity: Hands-Knees Datetime: 01/28/2023 10:15 FHR Baseline Changes: No Baseline Change Comments: periodic lates Datetime: 01/28/2023 09:46 Medication Comments: LR bolus complete, resumed LR at 100ml/hr COMMUNICATION Communication: LR bolus complete Datetime: 01/28/2023 09:29 VAGINAL EXAM Dilatation (cm): 6.0 Effacement (%): 100 Exam by: Dr. Wellington Vaginal Exam Comments: head ballotable Datetime: 01/28/2023 09:11 Monitor Interventions for FHR: Ultrasound Adjusted Datetime: 01/28/2023 08:57 MEDICATIONS Pitocin (milliunits): Discontinued Datetime: 01/28/2023 08:36 Epidural Procedure: Test Dose Datetime: 01/28/2023 08:30 Quality: Strong Datetime: 01/28/2023 08:26 ANESTHESIA Epidural Positioning: Sitting Datetime: 01/28/2023 08:07 I/O Interventions: Up to BR Datetime: 01/28/2023 08:01 Pain Presence: Intermittent Pain Type: Cramping; Ache Pain Location: Abdomen; Back Pain Goal: 6 Pain Assessment Comments: would like epidural, will notify anesthesia Datetime: 01/28/2023 07:56 Temperature (C): 37.0 Datetime: 01/28/2023 07:54 Pitocin Checklist: At Least 1 Acceleration of 15 bpm x 15 Seconds in 30 Minutes or Adequate Variabi lity; No More than 1 Late Deceleration Occurred in Past 30 Minutes; No More than 2 Variable Decelerat ions > 60 Seconds in Duration and decreasing >60 bpm in 30 minutes; No More than 5 Uterine Contractio ns in 10 Minutes for any 20 Minute Interval; Uterus Palpates Soft between Contractions Datetime: 01/28/2023 06:59 Monitor Interventions for UA: Cushman Adjusted ASSESSMENT A Monitor Mode: External US Datetime: 01/28/2023 06:34 Cervix, Consistency: Soft Datetime: 01/28/2023 02:29 Actions for Decelerations: Side to Side Datetime: 01/27/2023 19:15 Provider Notified (Name): Dr.Jasbir Datetime: 01/27/2023 16:46 Analgesics/Sedatives: Tylenol (mg) @ 1000mg PO Datetime: 01/27/2023 16:30 Pain Relief Measures: Comfort Measures Pain Coping: Breathing Through Contractions Comfort Measures: Breathing/Relaxation; Back Rub Given; Family Support Datetime: 01/27/2023 15:13 Station: -3 Datetime: 01/27/2023 11:46 Respirations: 16 Datetime: 01/27/2023 11:45 Vital Sign Comments: Patient sitting upright, movement during BP measurement. Will repeat. Datetime: 01/27/2023 10:25 Cervical Ripening Agents: Cytotec @ 25mcg Datetime: 01/27/2023 08:49 ROM Test Kit: Positive Membrane Comments: Will notify MD of result. Large amount of blood on swab. Pt. is not continuous ly leaking. Datetime: 01/27/2023 08:15 Vaginal Bleeding: Normal Show Datetime: 01/27/2023 08:00 Amniotic Fluid Amount: None Nitrazine: Negative PATIENT CARE IV/Blood Work: IV Started; Labs Drawn with IV Start
== END 2023-01-31 16:05 | disposition home or self-care (01) | DRG 787 ==
LOC: WFO 07:34 → FBP 07:35 → WFO 08:25 → FBP 08:26
PROVIDERS: ADMIT Obstetrics & Gynecology; ATTEND Obstetrics & Gynecology
PROC: 3E0P7VZ Introduction of Hormone into Female Reproductive, Via Natural or Artificial Opening (ICD-10-PCS; 2023-01-27)
PROC: 10907ZC Drainage of Amniotic Fluid, Therapeutic from Products of Conception, Via Natural or Artificial Opening (ICD-10-PCS; 2023-01-28)
PROC: 3E033VJ Introduction of Other Hormone into Peripheral Vein, Percutaneous Approach (ICD-10-PCS; 2023-01-28)
PROC: 10D00Z1 Extraction of Products of Conception, Low, Open Approach (ICD-10-PCS; principal; 2023-01-28 11:00)
DX: O99.02 Anemia complicating childbirth (principal); D62 Acute posthemorrhagic anemia; O99.354 Diseases of the nervous system complicating childbirth; Q79.60 Ehlers-Danlos syndrome, unspecified; O90.81 Anemia of the puerperium; O76 Abnormality in fetal heart rate and rhythm complicating labor and delivery; Z37.0 Single live birth; Z87.891 Personal history of nicotine dependence; G90.A Postural orthostatic tachycardia syndrome [POTS]; Z3A.40 40 weeks gestation of pregnancy; O77.0 Labor and delivery complicated by meconium in amniotic fluid; O99.214 Obesity complicating childbirth
CPT/HCPCS: 36415; 84112; 85025; 86850; 86900; 86901; A9270; J2274; J7120

== ENCOUNTER 2023-03-07 14:41 | Outpatient (CLI) | payer MEDICAID ==
[2023-03-07 20:21] LABS: BASOPHILS % (AUTO) 0.6 %; EOSINOPHILS # (AUTO) 0.4 10^3/uL (0.0-0.7); EOSINOPHILS % (AUTO) 5.1 %; HCT - HEMATOCRIT 40.9 % (37.0-47.0); HGB - HEMOGLOBIN 13.4 g/dL (12.0-16.0); LYMPHOCYTES # (AUTO) 2.6 10^3/uL (1.5-3.5); LYMPHOCYTES % (AUTO) 36.3 %; MEAN CORPUSCULAR HEMOGLOBIN 28.5 pg (27.0-31.0); MEAN CORPUSCULAR HGB CONC 32.8 g/dL (32.0-36.0); MEAN PLATELET VOLUME 9.5 fL (7.9-10.8); MONOCYTES # (AUTO) 0.4 10^3/uL (0.0-1.0); MONOCYTES % (AUTO) 6.1 %; NEUTROPHILS # (AUTO) 3.7 10^3/uL (1.5-6.6); NEUTROPHILS % (AUTO) 51.6 %; PLT - PLATELET COUNT 209 10^3/uL (130-450); RED CELL DISTRIBUTION WIDTH 12.2 % (12.0-15.0); WHITE BLOOD COUNT 7.2 x10^3/uL (4.8-10.8)
[2023-03-07 20:47] LABS: ALBUMIN 4.2 g/dL (3.2-5.5); ALBUMIN/GLOBULIN RATIO 1.5 (1.0-2.2); ALKALINE PHOSPHATASE 65 IU/L (42-121); ALT ALANINE AMINOTRANSFERASE 20 IU/L (10-60); AST ASPARTATE AMINOTRANSFERASE 18 IU/L (10-42); BILIRUBIN,TOTAL 0.4 mg/dL (0.2-1.0); BUN - BLOOD UREA NITROGEN 15 mg/dL (6-20); CALCIUM 9.2 mg/dL (8.5-10.3); CARBON DIOXIDE - CO2 32 mmol/L (21-32); CHLORIDE 102 mmol/L (101-111); CHOL/HDL RATIO 3.6 (<4.4); CHOLESTEROL 282 mg/dL; CREATININE 0.7 mg/dL (0.6-1.3); GFR - MDRD 96 (>89); GLUCOSE 83 mg/dL (74-104); HDL CHOLESTEROL 79 mg/dL; LDL CHOLESTEROL,CALCULATED 134 mg/dL; LDL/HDL RATIO 1.7 (<4.4); SODIUM 139 mmol/L (135-145); TRIGLYCERIDES 346 mg/dL (48-352); VLDL CHOLESTEROL 69 mg/dL
[2023-03-07 21:01] LABS: THYROID STIMULATING HORMONE 1.87 uIU/mL (0.34-5.60)
== END 2023-03-07 14:42 | disposition home or self-care (01) ==
LOC: LAB.S 14:41
PROVIDERS: ATTEND Physician Assistant Medical
DX: Z13.9 Encounter for screening, unspecified (principal)
CPT/HCPCS: 36415; 80053; 80061; 83721; 84443; 85025

== ENCOUNTER 2023-03-21 13:27 | Outpatient (CLI) | payer MEDICAID ==
--- NOTE | 2023-03-21 14:36 | Ultrasound Report ---
PROCEDURE: Pelvic w/Transvaginal INDICATIONS: PELVIC PAIN, IUD TECHNIQUE: Real-time scanning was performed of the pelvic organs, with image documentation. Additional endovagi nal scanning was necessary due to incomplete visualization of the adnexal and endometrial structures by transabdominal scanning. COMPARISON: None. FINDINGS: Uterus: Uterus is anteverted and normal in size at 8.8 x 4.0 x 5.2 cm. The intrauterine device is wi thin the anterior myometrium. The endometrium measures 5 mm in combined thickness. Ovaries: The right ovary measures 1.7 x 1.6 x 1.6cm, with a calculated ovarian volume of 2.3 cc. T he left ovary measures 2.3 x 1.4 x 2.9 cm, with a calculated ovarian volume of 4.9 cc. The ovaries h ave a normal sonographic appearance. Less than 12 follicles can be seen in each ovary. No adnexal m asses are seen. No cystic lesions measuring greater than 3 cm. Other: No pathologic free abdominal or pelvic fluid. IMPRESSION: Intrauterine device is within the anterior myometrium. Reviewed by: Veena August MD on 03/21/2023 2:34 PM PST Approved by: Veena August MD on 03/21/2023 2:34 PM PST Station ID: [id number]
== END 2023-03-21 13:28 | disposition home or self-care (01) ==
LOC: DI 13:27
PROVIDERS: ATTEND Nurse Practitioner
DX: R10.2 Pelvic and perineal pain (principal); Z97.5 Presence of (intrauterine) contraceptive device

== ENCOUNTER 2023-10-24 11:11 | Emergency (ER) | payer MEDICAID ==
--- NOTE | 2023-10-24 11:27 | ED Physician Documentation ---
PD HPI MHE - Stated complaint Stated Complaint: MHE - History obtained from History obtained from: Patient - History of Present Illness Primary symptom: Suicidal ideation, Depression, Anxiety (and poor sleep, but part of that is having to get up to feed her 9 month old during the night. She does not let her spouse do it so that he gets better sleep.) Timing - onset: How many months ago (4) Contributing factors: Family (she is 9 months post and has had notable depression since July (about 5-6 months after delivery). Has had increased suicidal ideation at times, no plan. She states she does not get frustrated with her child. FDoes not have feed baby during the night. Concerned about his desire for her.) Similar symptoms before: Has not had sx before Review of Systems Psychiatric: reports: Depressed, Suicidal, Anxiety, Insomnia. 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 - Present Medications Home Medications: Ambulatory Orders Medication Instructions Recorded Confirmed Acetaminophen [Tylenol] 1,000 mg PO Q8H #40 tab 01/31/23 Ferrous Sulfate [Feosol] 325 mg PO BIDWM #60 tab 01/31/23 Ibuprofen [Motrin] 600 mg PO Q6H #60 tab 01/31/23 oxyCODONE [Roxicodone] 5 mg PO Q4H PRN #20 tablet 01/31/23 traZODone [Desyrel] 25 - 50 mg PO HS PRN #12 tablet 10/24/23 - Allergies Allergies/Adverse Reactions: Allergies Allergy/AdvReac Type Severity Reaction Status Date / Time No Known Drug Allergies Allergy Verified 01/28/23 12:12 - Social History Smoking Status: Former smoker PD ED PE NORMAL - Vitals Vital signs reviewed: Yes - General General: Alert and oriented X 3, Well developed/nourished - Neck Neck: Supple, no meningeal sign, No adenopathy - Cardiac Cardiac: RRR, No murmur - Respiratory Respiratory: No respiratory distress, Clear bilaterally - Abdomen Abdomen: Soft, Non tender - Derm Derm: Normal color, Warm and dry - Neuro Neuro: Alert and oriented X 3, No motor deficit, Normal speech - Psych Psych: No: Normal mood (sd and tearful) Results - Vitals Vitals: Vital Signs - 24 hr 10/24/23 10/24/23 11:37 14:47 Temperature 36.7 C 36.6 C Heart Rate 91 88 Respiratory 18 16 Rate Blood Pressure 140/118 H 130/88 H O2 Saturation 97 98 Oxygen O2 Source Room air - Labs Labs: Laboratory Tests 10/24/23 10/24/23 10/24/23 11:51 12:02 12:02 WBC 4.7 L RBC 4.92 Hgb 13.4 Hct 42.1 MCV 85.6 MCH 27.2 MCHC 31.8 L RDW 13.7 Plt Count 155 MPV 10.1 Neut # (Auto) 2.5 Lymph # (Auto) 1.7 [place] # (Auto) 0.5 Eos # (Auto) 0.0 Baso # (Auto) 0.0 Absolute Nucleated RBC 0.00 Nucleated RBC % 0.0 Sodium 138 Potassium 4.4 Chloride 105 Carbon Dioxide 26 Anion Gap 7.0 BUN 13 Creatinine 0.8 Estimated GFR (MDRD) 82 L Glucose 122 H Calcium 9.5 Magnesium 1.9 Total Bilirubin 0.6 AST 14 ALT 10 Alkaline Phosphatase 49 Total Creatine Kinase 111 Total Protein 7.5 Albumin 4.5 Globulin 3.0 Albumin/Globulin Ratio 1.5 Lipase 22 TSH 1.16 Urine Color DARK YELLOW Urine Clarity CLEAR Urine pH 6.0 Ur Specific [place] >=1.030 H Urine Protein NEGATIVE Urine Glucose (UA) NEGATIVE Urine Ketones 15 H Urine Occult Blood NEGATIVE Urine Nitrite NEGATIVE Urine Bilirubin SMALL H Urine Urobilinogen 0.2 (NORMAL) Ur Leukocyte Esterase NEGATIVE Ur Microscopic Review NOT INDICATED Urine Culture Comments NOT INDICATED Urine HCG, Qual NEGATIVE Salicylates < 1.5 Urine Opiates Screen NEGATIVE Ur Buprenorphine Scrn NEGATIVE Ur Oxycodone Screen NEGATIVE Urine Methadone Screen NEGATIVE Acetaminophen 0.2 Ur Barbiturates Screen NEGATIVE Ur Tricyclics Screen NEGATIVE Ur Phencyclidine Scrn NEGATIVE Ur Amphetamine Screen NEGATIVE U Methamphetamines Scrn NEGATIVE U Benzodiazepines Scrn NEGATIVE Urine Cocaine Screen NEGATIVE U Cannabinoids Screen POSITIVE H Ur Drug Screen Comment CUTOFF CONC BELOW: Ethyl Alcohol < 10.0 PD Medical Decision Making - ED course Complexity details: reviewed results, considered differential (She gave in January without complications. Had an IUD placed in July which gave a lot of cramps and bleeding so it was discontinued. Has had a lot of mood disorder increase since July with tearfulness, poor appetite and sleep, concern over her etc.), d/w patient, d/w direct response consultant (Social Work Winter talked with patient and came with plan for short term counselor phone contact in next few days, pt with new counselor scheduled next week. To see PCP re: meds. and I can Rx meds for sleep short term to help there. Pt agreeable. ) Departure - Departure Disposition: Home, Self Care Clinical Impression: Post depression Condition: Stable Record reviewed to determine appropriate education?: Yes Instructions: ED Depression Follow-Up: [facility] [Provider Group] [facility] [Provider Group] Prescriptions: traZODone [Desyrel] 25 - 50 mg PO HS PRN #12 tablet PRN Reason: Insomnia Comments: Stay well-hydrated. Call the [facility] for a follow-up appointment to this your visit. Often times they will get you in a little so jaquan for follow-up visit. They do have a behavioral health worker nurse practitioner there and out to and hopefully will be able to establish with care for the psychological aspects. If there is going to be a longer time in order to get an there, then commonly [facility] can be a little prompt her in follow-ups. A social services counselor Winter was having some of the crisis counselors call you in the short-term to check and see how you are doing. In the short-term you can use trazodone at night to help with sleep. You can use your hydroxyzine twice daily if needed for anxiety. You will likely benefit not only from counseling which you are set up for on Monday, but also likely some medication in the short-term (antidepressants in the setting often will be thought of in the 3 to 6-month timeframe). I would defer that to a longer primary care or behavioral health. Return as needed. Call the crisis line if needed. Forms: PCP List Discharge Date/Time: 10/24/23 14:47
[2023-10-24 12:09] LABS: BASOPHILS % (AUTO) 0.6 %; EOSINOPHILS % (AUTO) 0.8 %; HCT - HEMATOCRIT 42.1 % (37.0-47.0); HGB - HEMOGLOBIN 13.4 g/dL (12.0-16.0); LYMPHOCYTES # (AUTO) 1.7 10^3/uL (1.5-3.5); LYMPHOCYTES % (AUTO) 35.9 %; MEAN CORPUSCULAR HEMOGLOBIN 27.2 pg (27.0-31.0); MEAN CORPUSCULAR HGB CONC 31.8 g/dL (32.0-36.0); MEAN CORPUSCULAR VOLUME 85.6 fL (81.0-99.0); MEAN PLATELET VOLUME 10.1 fL (7.9-10.8); MONOCYTES # (AUTO) 0.5 10^3/uL (0.0-1.0); MONOCYTES % (AUTO) 9.6 %; NEUTROPHILS # (AUTO) 2.5 10^3/uL (1.5-6.6); NEUTROPHILS % (AUTO) 53.1 %; PLT - PLATELET COUNT 155 10^3/uL (130-450); RED BLOOD COUNT 4.92 10^6/uL (4.20-5.40); RED CELL DISTRIBUTION WIDTH 13.7 % (12.0-15.0); WHITE BLOOD COUNT 4.7 x10^3/uL (4.8-10.8)
[2023-10-24 12:17] LABS: BILIRUBIN,URINE SMALL (NEGATIVE); GLUCOSE, URINE (UA) NEGATIVE (NEGATIVE); KETONES,URINE (UA) 15 mg/dL (NEGATIVE); LEUKOCYTE ESTERASE, URINE NEGATIVE (NEGATIVE); NITRITE,URINE NEGATIVE (NEGATIVE); OCCULT BLOOD,URINE NEGATIVE (NEGATIVE); PROTEIN,URINE NEGATIVE (NEGATIVE); UROBILINOGEN,URINE 0.2 (NORMAL) E.U./dL (NORMAL)
[2023-10-24 12:18] LABS: CLARITY,URINE CLEAR (CLEAR)
[2023-10-24 12:19] LABS: HCG UR QUAL NEGATIVE
[2023-10-24 12:24] LABS: ACETAMINOPHEN 0.2 ug/mL; ALBUMIN 4.5 g/dL (3.2-5.5); ALBUMIN/GLOBULIN RATIO 1.5 (1.0-2.2); ALKALINE PHOSPHATASE 49 IU/L (42-121); ALT ALANINE AMINOTRANSFERASE 10 IU/L (10-60); AST ASPARTATE AMINOTRANSFERASE 14 IU/L (10-42); BILIRUBIN,TOTAL 0.6 mg/dL (0.2-1.0); BUN - BLOOD UREA NITROGEN 13 mg/dL (6-20); CALCIUM 9.5 mg/dL (8.5-10.3); CARBON DIOXIDE - CO2 26 mmol/L (21-32); CHLORIDE 105 mmol/L (101-111); CK- CREATINE KINASE 111 IU/L (30-223); CREATININE 0.8 mg/dL (0.6-1.3); ETOH - ETHANOL < 10.0 mg/dL; GFR - MDRD 82 (>89); GLUCOSE 122 mg/dL (74-104); LIPASE 22 U/L (11-82); MAGNESIUM 1.9 mg/dL (1.7-2.3); POTASSIUM 4.4 mmol/L (3.5-4.5); SODIUM 138 mmol/L (135-145); TOTAL PROTEIN 7.5 g/dL (6.4-8.9)
[2023-10-24 12:35] LABS: AMPHETAMINE SCREEN,URINE NEGATIVE (NEGATIVE); BARBITURATE SCREEN,UR NEGATIVE (NEGATIVE); BENZODIAZEPINES SCREEN, URINE NEGATIVE (NEGATIVE); BUPRENORPHINE SCREEN, URINE NEGATIVE (NEGATIVE); COCAINE SCREEN URINE NEGATIVE (NEGATIVE); METHADONE SCREEN, URINE NEGATIVE (NEGATIVE); METHAMPHETAMINES SCREEN, URINE NEGATIVE (NEGATIVE); OPIATE SCREEN, URINE NEGATIVE (NEGATIVE); OXYCODONE SCREEN, URINE NEGATIVE (NEGATIVE); THC CANNABINOID SCREEN, URINE POSITIVE (NEGATIVE); TRICYCLIC ANTIDEPRESSANT,URINE NEGATIVE (NEGATIVE)
[2023-10-24 12:35] LABS: SALICYLATE < 1.5 mg/dL
[2023-10-24 12:38] LABS: THYROID STIMULATING HORMONE 1.16 uIU/mL (0.34-5.60)
[2023-10-24 14:52] VITALS: BP 130/88; O2SAT 98
== END 2023-10-24 14:47 | disposition home or self-care (01) ==
LOC: ED 11:11
DX: O99.345 Other mental disorders complicating the puerperium (principal); F53.0 Postpartum depression; F41.9 Anxiety disorder, unspecified; R45.851 Suicidal ideations; G47.00 Insomnia, unspecified; Z32.02 Encounter for pregnancy test, result negative
CPT/HCPCS: 36415; 80053; 80143; 80179; 80306; 81001; 81003; 81025; 82077; 82550; 83690; 83735; 84443; 85025; 87086; 99284